=== PATIENT | female | born 1965 | race Caucasian/White ===

== ENCOUNTER 2020-07-28 16:55 | Outpatient (CLI) | payer MEDICARE, MEDICAID, SELFPAY ==
--- NOTE | ~2020-07-28 | XR_ITS ---
EXAMINATION: XR hand BI arthritis min 3V EXAM DATE: 07/28/2020 18:19 INDICATION: Osteoarthritis. Abnormal blood serum immunological finding. TECHNIQUE: Right hand frontal, lateral and oblique projections obtained and reviewed. Left hand fron racheal, lateral and oblique projections obtained and reviewed. Catchers projection of both hands. There is no prior study for comparison. FINDINGS: There is moderate bilateral 1st carpometacarpal primary osteoarthritis. Joint spaces are ot herwise maintained and symmetric. There are no bony erosions identified. There are no acute fractures or dislocations identified. There is no subcutaneous gas. The soft tissue is unremarkable. There are no radiopaque foreign bodies. IMPRESSION: Moderate bilateral 1st CMC joint osteoarthritis. Reviewed, dictated and finalized at location A.
--- NOTE | ~2020-07-28 | XR_ITS ---
EXAMINATION: XR knee LT 3V EXAM DATE: 07/28/2020 18:19 INDICATION: Other specified abnormal immunological findings in blood serum. TECHNIQUE: Three projections of the left knee. There is no prior study for comparison. FINDINGS: No evidence osteochondral defect or joint body in the left knee joint. No joint effusion . Joint space maintained. There are no acute fractures or dislocations identified. There is no subcu taneous gas. The soft tissue is unremarkable. There are no radiopaque foreign bodies. IMPRESSION: Normal x-ray exam. Reviewed, dictated and finalized at location A. IMPRESSION: Normal x-ray exam.
--- NOTE | ~2020-07-28 | XR_ITS ---
EXAMINATION: XR knee RT 3V EXAM DATE: 07/28/2020 18:19 INDICATION: Other specified abnormal immunological findings in blood serum . TECHNIQUE: Three projections of the right knee. There is no prior study for comparison. FINDINGS: No evidence osteochondral defect or joint body in the right knee joint. No joint effusion . There are no acute fractures or dislocations identified. There is no subcutaneous gas. The soft t issue is unremarkable. There are no radiopaque foreign bodies. IMPRESSION: 1. Unremarkable right knee exam. Reviewed, dictated and finalized at location A.
--- NOTE | ~2020-07-28 | XR_ITS ---
EXAMINATION: XR foot RT standing 2V EXAM DATE: 07/28/2020 18:20 INDICATION: Other specified abnormal immunological findings in blood serum TECHNIQUE: Frontal and lateral projections of the right foot, standing. Correlation is made to contr alateral foot same date. FINDINGS: There is mild right 1st metatarsophalangeal joint primary osteoarthritis. There are no bon y erosions identified. No periosteal reaction or band of sclerosis to suggest subacute stress fractur e. There are no acute pes planus fractures or dislocations identified. There is no subcutaneous gas. The soft tissue is unremarkable. There are no radiopaque foreign bodies. IMPRESSION: Chronic findings as above. Reviewed, dictated and finalized at location A. IMPRESSION: Chronic findings as above.
--- NOTE | ~2020-07-28 | XR_ITS ---
EXAMINATION: XR foot LT standing 2V EXAM DATE: 07/28/2020 18:19 INDICATION: Other specified abnormal immunological findings in blood serum . TECHNIQUE: Frontal and lateral projections of the left foot.. There is no prior study for compariso n. FINDINGS: Screw in the subtalar region. Small inferior left calcaneal spur. There are no bony erosio ns identified. No periosteal reaction or band of sclerosis to suggest subacute stress fracture. There are no acute fractures or dislocations identified. There is no subcutaneous gas. The soft tissue i s unremarkable. Pes planus. There is mild 1st metatarsophalangeal joint primary osteoarthritis. IMPRESSION: Chronic findings as above. Reviewed, dictated and finalized at location A. IMPRESSION: Chronic findings as above.
--- NOTE | ~2020-07-28 | XR_ITS ---
EXAMINATION: XR hip BI 2V w AP pelvis EXAM DATE: 07/28/2020 18:20 INDICATION: Osteoarthritis. Abnormal blood serum neurological finding. TECHNIQUE: Each hip imaged independently (separate right and also left hip) crosstable lateral and f rontal projections for interpretation. Frontal projection pelvis. There is no prior study for miguel monreal. FINDINGS: No radiographic evidence of hip avascular necrosis. There is mild to moderate right hip, m ild left hip primary osteoarthritis. There are no acute fractures or dislocations identified. There is no subcutaneous gas. The soft tissue is unremarkable. There are no radiopaque foreign bodies. IMPRESSION: Mild to moderate right, mild left hip osteoarthritis. Reviewed, dictated and finalized at location A.
[2020-07-28 18:22] LABS: Add Urine Microscopic? YES; Amorphous Sediment Urine Few; Appearance Urine Clear (Clear); Bacteria Urine Trace /hpf; Bilirubin Urine Negative (Negative); Blood Urine Negative (Negative); Color Urine Yellow (Yellow); Glucose Urine UA 3+ mg/dL (Negative); Ketones Urine Negative (Negative); Leukocyte Esterase Ur Negative LEU/UL (Negative); Mucus Urine Rare /lpf; Nitrate Urine Negative (Negative); Protein Urine Negative (Negative); RBC Urine 0-2 /hpf (0-2); Specific Grav Ur 1.029 (1.001-1.035); Squamous Epithelial Cell Urine Occasional /hpf (Few); Urobilinogen Urine Negative mg/dL (<2.0)
[2020-07-28 18:27] LABS: Alanine Aminotransferase 73 U/L (4-35); Alkaline Phosphatase 115 U/L (38-126); Anion Gap 13 mmol/L (8-16); Aspartate Amino Transferase 83 U/L (14-36); Bilirubin,Total 0.3 mg/dL (0.2-1.3); Blood Urea Nitrogen 9 mg/dL (7-17); CRP 1.2 mg/dL (<1.0); Calcium 9.1 mg/dL (8.4-10.2); Carbon Dioxide 23 mmol/L (22-30); Chloride 97 mmol/L (98-107); Estimated Glomerular Filt Rate > 60; Glucose 392 mg/dL (65-105); Potassium 3.8 mmol/L (3.4-5.0); Sodium 133 mmol/L (137-145)
[2020-07-28 18:29] LABS: Complement C3 151 mg/dL (88-165); Rheumatoid Factor < 8.6 IU/ML (<12)
[2020-07-28 18:33] LABS: Erythrocyte Sedimentation Rate 16 mm/hr (0-20)
[2020-07-28 18:42] LABS: Basophils Absolute Auto 0.1 K/mm3 (0.0-0.1); Basophils Percent Auto 0.9 % (0.2-1.2); Eosinophils Absolute Auto 0.2 K/mm3 (0-0.3); Eosinophils Percent Auto 2.6 % (0-4.4); Hematocrit 41.1 % (37.0-47.0); Hemoglobin 13.8 g/dL (12.0-15.0); Immature Granulocyte Absolute 0.06 K/mm3 (0.00-0.031); Immature Granulocyte Percent A 0.8 % (0-0.5); Lymphocytes Percent Auto 47.3 % (18.3-44.2); Mean Corpuscular HGB Conc 33.6 g/dl (32-36); Mean Corpuscular Hemoglobin 31.8 pg (26-34); Mean Corpuscular Volume 94.7 fl (80-100); Mean Platelet Volume 10.9 fl (7.4-10.4); Monocytes Absolute Auto 0.5 K/mm3 (0.1-0.6); Monocytes Percent Auto 6.6 % (2.6-8.5); Neutrophils Absolute Auto 3.3 K/mm3 (1.3-6.7); Neutrophils Percent Auto 41.8 % (45.5-73.1); Platelet Count Result 254 k/mm3 (150-375); Red Blood Count 4.34 M/mm3 (4.2-5.4); Red Cell Distribution Width 11.8 % (11.5-14.5); White Blood Count 7.8 K/mm3 (4.5-10.0)
[2020-08-01 03:13] LABS: Anti Cardio Antibody IgM <12 MPL (<=12); Anti Cardiolipin Antibody IgA <11 APL (<=11); Anti Cardiolipin Antibody IgG <14 GPL (<=14)
[2020-08-01 09:24] LABS: SS-A <1.0; SS-B <1.0
[2020-08-02 12:45] LABS: SM Antibody <1.0; SM/RNP Antibody <1.0
[2020-08-03 18:52] LABS: Lupus dRVVT 1:1 Mix Interpreta Not Indicated; Lupus dRVVT Screen 33 sec (<=45); PTT-LA Screen 27 sec (<=40)
[2020-08-04 22:02] LABS: Anti Cyclic Citrullinated Pept 20 Units (<20)
== END 2020-07-28 16:56 | disposition home or self-care (01) ==
PROVIDERS: PCP Family Medicine; Visit Provider Internal Medicine
DX: R76.8 Other specified abnormal immunological findings in serum (principal); M15.9 Polyosteoarthritis, unspecified
CPT/HCPCS: 36415; 73130; 73521; 73562; 73620; 80053; 81001; 85025; 85613; 85652; 85730; 86038; 86039; 86140; 86146; 86147; 86160; 86200; 86225; 86235; 86430; 87086; 87088